=== PATIENT | female | born 1960 | race Hispanic/Latino ===

== ENCOUNTER 2022-03-25 08:23 | Emergency (ER) | payer BC, SELFPAY | END 2022-03-25 09:17 | disposition home or self-care (01) | LOC: CSHERS 08:23 | DX: H66.93 Otitis media, unspecified, bilateral (principal); I10 Essential (primary) hypertension; I25.10 Atherosclerotic heart disease of native coronary artery without angina pectoris; Z87.19 Personal history of other diseases of the digestive system; Z79.899 Other long term (current) drug therapy | CPT/HCPCS: 99282 ==

== ENCOUNTER 2022-05-16 09:30 | Emergency (ER) | payer BC ==
[2022-05-16 10:12] LABS: #Basophils 0.1 10x3/uL (0.0-0.2); #Eosinphils 0.4 10x3/uL (0.0-0.5); #Monocytes 0.9 10x3/uL (0.0-1.1); #Neutrophils 4.9 10x3/uL (1.5-8.4); %Eosinophils 4.2 % (0.0-6.0); %Lymphocytes 27.8 % (18.0-47.0); %Monocytes 10.7 % (0.0-10.0); %Neutrophils 56.1 % (40.0-75.0); Hemoglobin 12.4 g/dL (12.0-15.5); Mean Corpuscular HGB CONC 34.1 g/dL (32.0-36.0); Mean Corpuscular Hemoglobin 30.6 pg (27.0-33.0); Mean Corpuscular Volume 89.9 fl (81.6-98.3); Mean Platelet Volume 9.9 fl (7.4-10.4); Platelet Count 277 10x3/uL (150-450); RBC Distribution Width 12.2 % (11.5-14.5); Red Blood Cell (RBC) Count 4.05 10x6/uL (3.90-5.03); White Blood Cell (WBC) Count 8.7 10x3/uL (3.5-10.5)
[2022-05-16] MEDS ORDERED: Metoclopramide HCl 10 MG/2 ML VIAL ONE (10:34)
[2022-05-16] MEDS ORDERED: diphenhydrAMINE 50 MG/ML VIAL ONE (10:34)
[2022-05-16 10:35] LABS: ALT (SGPT) 60 U/L (8-55); AST (SGOT) 37 U/L (5-34); Alkaline Phosphatase 160 U/L (40-110); Anion Gap 14 mmol/L (10-20); BUN (Urea Nitrogen) 26 mg/dL (9.8-20.1); Bilirubin, Total 0.7 mg/dL (0.2-1.2); Calc. Creatinine Clearance 0 mL/min (70-130); Calcium 9.4 mg/dL (7.8-10.44); Carbon Dioxide 23 mmol/L (22-29); Chloride 105 mmol/L (98-107); Estimated GFR 90; Globulin 3.2 g/dL (2.4-3.5); Glucose 105 mg/dL (70-105); Potassium 3.9 mmol/L (3.5-5.1); Protein, Total 7.2 g/dL (6.0-8.3); Sodium 138 mmol/L (136-145)
== END 2022-05-16 13:45 | disposition home or self-care (01) ==
LOC: CSHERS 09:30
DX: G43.909 Migraine, unspecified, not intractable, without status migrainosus (principal); I10 Essential (primary) hypertension; I25.10 Atherosclerotic heart disease of native coronary artery without angina pectoris; Z79.899 Other long term (current) drug therapy; Z79.01 Long term (current) use of anticoagulants
CPT/HCPCS: 36415; 70450; 80053; 84484; 85025; 93005; 96374; 96375; J1200; J2765

== ENCOUNTER 2022-10-18 05:59 | Emergency (ER) | payer BC ==
[2022-10-18] MEDS ORDERED: Ibuprofen 200 MG TAB ONE (06:29)
[2022-10-18] MEDS ORDERED: Ondansetron ODT 4 MG TAB ONE (06:29)
[2022-10-18 07:11] LABS: SARS-CoV-2 NAA Rapid Test Not Detected (NotDetected)
== END 2022-10-18 08:12 | disposition home or self-care (01) ==
LOC: CSHERS 05:59
DX: J10.1 Influenza due to other identified influenza virus with other respiratory manifestations (principal); Z20.822 Contact with and (suspected) exposure to COVID-19; I25.119 Atherosclerotic heart disease of native coronary artery with unspecified angina pectoris; I10 Essential (primary) hypertension; Z79.899 Other long term (current) drug therapy
CPT/HCPCS: 99284; Q0162

== ENCOUNTER 2022-11-04 09:59 | Emergency (ER) | payer BC | END 2022-11-04 11:15 | disposition home or self-care (01) | LOC: CSHERS 09:59 | DX: T16.2XXA Foreign body in left ear, initial encounter (principal); J20.9 Acute bronchitis, unspecified; I25.10 Atherosclerotic heart disease of native coronary artery without angina pectoris; I10 Essential (primary) hypertension | CPT/HCPCS: 99283 ==

== ENCOUNTER 2023-01-02 06:41 | Emergency (ER) | payer BC, SELFPAY ==
[2023-01-02] MEDS ORDERED: Acetaminophen 500 MG TAB ONE (07:22)
[2023-01-02] MEDS ORDERED: Ibuprofen 200 MG TAB ONE (07:22)
== END 2023-01-02 07:30 | disposition home or self-care (01) ==
LOC: CSHERS 06:41
DX: H92.01 Otalgia, right ear (principal); I25.10 Atherosclerotic heart disease of native coronary artery without angina pectoris; I10 Essential (primary) hypertension
CPT/HCPCS: 99282

== ENCOUNTER 2023-06-18 20:11 | Observation (INO) | payer OTHER ==
[~2023-06-18 20:11] MED LIST: Iopamidol 370 76% 100 ML VIAL ONE
[2023-06-18] MEDS ORDERED: Aspirin Chewable 81 MG TAB ONE (20:42)
[2023-06-18] MEDS ORDERED: cloNIDine 0.1 MG TAB ONE (20:43)
[2023-06-18 21:38] LABS: ALT (SGPT) 43 U/L (8-55); AST (SGOT) 37 U/L (5-34); Albumin 4.2 g/dL (3.5-5.0); Alkaline Phosphatase 139 U/L (40-110); Anion Gap 18 mmol/L (10-20); BUN (Urea Nitrogen) 18 mg/dL (9.8-20.1); Bilirubin, Total 0.2 mg/dL (0.2-1.2); Calc. Creatinine Clearance 0 mL/min (70-130); Calcium 9.2 mg/dL (7.8-10.44); Carbon Dioxide 24 mmol/L (22-29); Chloride 104 mmol/L (98-107); Estimated GFR 94; Globulin 3.3 g/dL (2.4-3.5); Glucose 100 mg/dL (70-105); Potassium 4.3 mmol/L (3.5-5.1); Protein, Total 7.5 g/dL (6.0-8.3); Sodium 142 mmol/L (136-145)
[2023-06-18 21:47] LABS: #Basophils 0.1 10x3/uL (0.0-0.2); #Eosinphils 0.3 10x3/uL (0.0-0.5); #Monocytes 0.9 10x3/uL (0.0-1.1); #Neutrophils 5.9 10x3/uL (1.5-8.4); %Basophils 0.8 % (0.0-2.0); %Eosinophils 2.6 % (0.0-6.0); %Lymphocytes 30.9 % (18.0-47.0); %Monocytes 9.1 % (0.0-10.0); %Neutrophils 56.3 % (40.0-75.0); Hematocrit 42.8 % (34.9-44.5); Hemoglobin 14.8 g/dL (12.0-15.5); Mean Corpuscular HGB CONC 34.6 g/dL (32.0-36.0); Mean Corpuscular Hemoglobin 30.8 pg (27.0-33.0); Mean Platelet Volume 9.9 fl (7.4-10.4); Platelet Count 325 10x3/uL (150-450); RBC Distribution Width 12.1 % (11.5-14.5); Red Blood Cell (RBC) Count 4.81 10x6/uL (3.90-5.03); White Blood Cell (WBC) Count 10.4 10x3/uL (3.5-10.5)
[2023-06-19 00:12] LABS: Troponin I Less than 0.010 ng/mL (< 0.028)
[2023-06-19 01:46] VITALS: BMI 27.8
[2023-06-19 03:10] LABS: #Basophils 0.1 10x3/uL (0.0-0.2); #Eosinphils 0.3 10x3/uL (0.0-0.5); #Monocytes 0.9 10x3/uL (0.0-1.1); #Neutrophils 4.3 10x3/uL (1.5-8.4); %Basophils 0.7 % (0.0-2.0); %Eosinophils 3.4 % (0.0-6.0); %Lymphocytes 34.5 % (18.0-47.0); %Monocytes 10.6 % (0.0-10.0); %Neutrophils 50.4 % (40.0-75.0); Hematocrit 39.8 % (34.9-44.5); Hemoglobin 13.8 g/dL (12.0-15.5); Mean Corpuscular HGB CONC 34.7 g/dL (32.0-36.0); Mean Corpuscular Hemoglobin 30.8 pg (27.0-33.0); Mean Corpuscular Volume 88.8 fl (81.6-98.3); Mean Platelet Volume 10.1 fl (7.4-10.4); Platelet Count 262 10x3/uL (150-450); RBC Distribution Width 12.1 % (11.5-14.5); Red Blood Cell (RBC) Count 4.48 10x6/uL (3.90-5.03); White Blood Cell (WBC) Count 8.5 10x3/uL (3.5-10.5)
[2023-06-19 03:27] LABS: Troponin I Less than 0.010 ng/mL (< 0.028)
[2023-06-19 03:27] LABS: ALT (SGPT) 40 U/L (8-55); AST (SGOT) 34 U/L (5-34); Albumin 3.8 g/dL (3.5-5.0); Alkaline Phosphatase 120 U/L (40-110); Anion Gap 15 mmol/L (10-20); BUN (Urea Nitrogen) 20 mg/dL (9.8-20.1); Bilirubin, Total 0.2 mg/dL (0.2-1.2); Calc. Creatinine Clearance 90 mL/min (70-130); Calcium 9.2 mg/dL (7.8-10.44); Carbon Dioxide 24 mmol/L (22-29); Chloride 105 mmol/L (98-107); Estimated GFR 91; Globulin 3.2 g/dL (2.4-3.5); Glucose 100 mg/dL (70-105); Potassium 4.1 mmol/L (3.5-5.1); Sodium 140 mmol/L (136-145)
[2023-06-19] MEDS ORDERED: Famotidine 20 MG TAB PO SCH (09:00)
[2023-06-19] MEDS: Lisinopril 10 MG TAB PO SCH (09:41)
[2023-06-19] MEDS ORDERED: Acetaminophen 325 MG TAB PO PRN (12:54)
[2023-06-19] MEDS: Diclofenac 1% 100 GM GEL TP SCH ×3 (12:56→21:08)
[2023-06-19] MEDS ORDERED: Acetaminophen 325 MG TAB PO SCH (13:00)
[2023-06-19 14:24] LABS: SARS-CoV-2 NAA Rapid Test Not Detected (NotDetected)
[2023-06-20] MEDS ORDERED: Aspirin Chewable 81 MG TAB PO SCH (09:00)
[2023-06-20] MEDS ORDERED: Lisinopril 10 MG TAB PO SCH (09:00)
[2023-06-20 09:10] VITALS: BP 109/79; TEMP 97.7
[2023-06-20] MEDS: Lisinopril 10 MG TAB PO SCH (09:26)
[2023-06-20] MEDS: Diclofenac 1% 100 GM GEL TP SCH (09:31)
== END 2023-06-20 12:03 | disposition home or self-care (01) ==
LOC: CSHERS 20:11 → CSHTELE 22:51 → UNDOADMOB 06-19 00:36 → CSHTELE 06-19 00:36
PROVIDERS: ADMIT Internal Medicine; ATTEND Family Medicine
DX: J12.9 Viral pneumonia, unspecified (principal); B97.89 Other viral agents as the cause of diseases classified elsewhere; I10 Essential (primary) hypertension; R00.1 Bradycardia, unspecified; G25.81 Restless legs syndrome; F41.8 Other specified anxiety disorders; E78.5 Hyperlipidemia, unspecified; Z79.899 Other long term (current) drug therapy; Z79.01 Long term (current) use of anticoagulants; Z79.82 Long term (current) use of aspirin; B19.20 Unspecified viral hepatitis C without hepatic coma
CPT/HCPCS: 36415; 71045; 71275; 76705; 80053; 84484; 85025; 87633; 93005; 93010; 93306; 96372; G0378; J1650; Q9967

== ENCOUNTER 2023-10-06 18:42 | Emergency (ER) | payer SELFPAY ==
[2023-10-06] MEDS ORDERED: Aspirin Chewable 81 MG TAB ONE ×2 (19:10→19:13)
[2023-10-06 19:48] LABS: #Basophils 0.1 10x3/uL (0.0-0.2); #Eosinphils 0.2 10x3/uL (0.0-0.5); #Monocytes 0.7 10x3/uL (0.0-1.1); #Neutrophils 4.8 10x3/uL (1.5-8.4); %Basophils 0.8 % (0.0-2.0); %Eosinophils 2.4 % (0.0-6.0); %Lymphocytes 31.5 % (18.0-47.0); %Monocytes 8.7 % (0.0-10.0); %Neutrophils 56.5 % (40.0-75.0); Hematocrit 40.5 % (34.9-44.5); Mean Corpuscular HGB CONC 34.6 g/dL (32.0-36.0); Mean Corpuscular Volume 89.8 fl (81.6-98.3); Platelet Count 270 10x3/uL (150-450); RBC Distribution Width 12.1 % (11.5-14.5); Red Blood Cell (RBC) Count 4.51 10x6/uL (3.90-5.03); White Blood Cell (WBC) Count 8.4 10x3/uL (3.5-10.5)
[2023-10-06 19:58] LABS: ALT (SGPT) 36 U/L (8-55); AST (SGOT) 27 U/L (5-34); Albumin 4.4 g/dL (3.4-4.8); Alkaline Phosphatase 125 U/L (40-110); Anion Gap 16 mmol/L (10-20); BUN (Urea Nitrogen) 19 mg/dL (9.8-20.1); Bilirubin, Total 0.6 mg/dL (0.2-1.2); Calc. Creatinine Clearance 0 mL/min (70-130); Calcium 9.8 mg/dL (7.8-10.44); Carbon Dioxide 22 mmol/L (23-31); Chloride 108 mmol/L (98-107); Estimated GFR 91; Globulin 3.6 g/dL (2.4-3.5); Glucose 104 mg/dL (80-115); Potassium 3.9 mmol/L (3.5-5.1); Sodium 142 mmol/L (136-145)
[2023-10-06 20:00] LABS: Troponin I Less than 0.010 ng/mL (< 0.028)
[2023-10-06 20:03] LABS: SARS-CoV-2 NAA Rapid Test Not Detected (NotDetected)
[2023-10-06] MEDS ORDERED: Ketorolac Tromethamine 30 MG/ML VIAL ONE (20:19)
[2023-10-06] MEDS ORDERED: Cyclobenzaprine 10 MG TAB ONE (20:19)
== END 2023-10-06 20:53 | disposition home or self-care (01) ==
LOC: CSHERS 18:42
DX: R07.89 Other chest pain (principal); I10 Essential (primary) hypertension; I25.10 Atherosclerotic heart disease of native coronary artery without angina pectoris; Z20.822 Contact with and (suspected) exposure to COVID-19
CPT/HCPCS: 36415; 71045; 80053; 83880; 84484; 85025; 85379; 93005; 96372; J1885